=== PATIENT | male | born 1960 | race Caucasian/White ===

== ENCOUNTER 2018-10-02 12:43 | Outpatient (CLI) | payer OTHER | END 2018-10-02 12:58 | disposition home or self-care (01) | LOC: TOM 12:43 | DX: D12.0 Benign neoplasm of cecum (principal); K57.30 Diverticulosis of large intestine without perforation or abscess without bleeding ==

== ENCOUNTER 2020-02-20 07:46 | Day surgery (SDC) | payer OTHER | END 2020-02-20 13:00 | disposition home or self-care (01) | LOC: AMB-ENDOS 07:46 | PROVIDERS: ATTEND Surgery | DX: K62.89 Other specified diseases of anus and rectum (principal); Z20.828 Contact with and (suspected) exposure to other viral communicable diseases ==